=== PATIENT | female | born 1970 | race Two or more races ===

== ENCOUNTER 2024-06-28 21:47 | Emergency (ER) | payer SELFPAY ==
[~2024-06-28] VITALS: Ht 160 cm; Wt 72.1 kg
[2024-06-29] MEDS ORDERED: VENL150C3 PO (00:08)
[2024-06-29] MEDS ORDERED: METO25TA5 PO (00:08)
--- NOTE | 2024-06-29 00:08 | ED.PDOC ---
Psychiatric HPI Comments PT STATE SHE HAS BEEN OUT OF HER EFFEXOR FOR DEPRESSION SINCE SATURDAY, IS ALSO ALMOST OUT OF HER METOPROLOL. ASKING FOR MED REFILLS. RECENTLY LOST HER INSURANCE, NO LONGER HAS PCP Chief Complaint: Anxiety Time Seen by MD: 21:50 Reviewed Notes: Nurses Notes, Medications, Allergies Information Source: Patient Mode of Arrival: Ambulatory Past Medical History PAST MEDICAL HISTORY: Anxiety, Depression, HTN Surgical History: Denies all surgeries INTEGRATION AIDE History: No Pertinent INTEGRATION AIDE History Family History Family History: Unknown Social History Smoker: Other (VAPE) Alcohol: Denies ETOH Use Drugs: Denies Drug Use Constitutional: denies: chills, diaphoresis, fatigue, fever, malaise, sweats, weakness, others EENTM: denies: blurred vision, double vision, ear bleeding, ear discharge, ear drainage, ear pain, ear ringing, eye pain, eye redness, hearing loss, mouth pain, mouth swelling, nasal discharge, nose bleeding, nose congestion, nose pain, photophobia, tearing, throat pain, throat swelling, voice changes, others Respiratory: denies: cough, hemoptysis, orthopnea, SOB at rest, shortness of breath, SOB with excertion, stridor, wheezing, others Cardiovascular: denies: chest pain, dizzy spells, diaphoresis, Dyspnea on exert ion, edema, irregular heart beat, left arm pain, lightheadedness, palpitations, PND, syncope, others Gastrointestinal: denies: abdomen distended, abdominal pain, blood streaked bowels, constipated, diarrhea, dysphagia, difficulty swallowing, hematemesis, melena, nausea, poor appetite, poor fluid intake, rectal bleeding, rectal pain, vomiting, others Genitourinary: denies: abnormal vagina bleeding, burning, dyspareunia, dysuria, flank pain, frequency, hematuria, incontinence, pain, , vagina discharge, urgency, others Neurological: reports: dizziness, headache; denies: fainting, left sided numbness, left sided weakness, numbness, paresthesia, pre-existing deficit, right sided numbness, right sided weakness, seizure, speech problems, tingling, tremors, weakness, others Musculoskeletal: denies: back pain, gout, joint pain, joint swelling, muscle pain, muscle stiffness, neck pain, others Integumetry: denies: bruises, change in color, change in hair/nails, dryness, laceration, lesions, lumps, rash, wounds, others Allergic/Immunocompromised: denies: Difficulty Healing, Frequent Infections, Hives, Itching, others Hematologic/Lymphatic: denies: anemia, blood clots, easy bleeding, easy bruising, swollen glands, others Endocrine: denies: excessive hunger, excessive sweating, excessive thirst, excessive urination, flushing, intolerance to cold, intolerance to heat, unexplained weight gain, unexplained weight loss, others Psychiatric: denies: anxiety, bipolar disorder, depression, hopeless, panic disorder, schizophrenia, sleepless, suicidal, others Physical Exam General Appearance: No Apparent Distress, Normal HEENT: Normal ENT Inspection, Pharynx Normal, TMs Normal Neck: Full Range of Motion, Non-Tender Respiratory: Lungs Clear, No Respiratory Distress, Normal Breath Sounds Cardiovascular: No Edema, No JVD, No Murmur, No Gallop, Normal Peripheral Pulses, Regular Rate/Rhythm Breast Exam: Deferred Gastrointestinal: No Organomegaly, Non Tender, No Pulsatile Mass, Normal Bowel Sounds, Soft Genitalia: Deferred Pelvic: Deferred Rectal: Deferred Extremities: Normal capillary refill, Normal inspection, Normal range of motion, Non-tender, No pedal edema Musculoskeletal : Apperance: Normal Neurologic: Alert, testing tech II-XII nml as Tested, No Motor Deficits, Normal Affect, Normal Mood, No Sensory Deficits Cerebellar Function: Normal Reflexes: Normal Skin: Dry, Normal Color, Warm Lymphatic: No Adenopathy Was a procedure done? Was a procedure done?: No Psych Differential Dx Psych. Differential Dx: Anxiety OD Differential Dx: Depression X-Ray, Labs, Meds, VS Vital Signs Date Time Temp Pulse Resp B/P (MAP) Pulse Ox O2 Delivery O2 Flow Rate FiO2 06/28/24 22:05 98.8 103 18 136/93 (107) 99 98.8 Current Medications Medications (Trade) Dose Ordered Sig/Tanya Route Start Time Stop Time Status Last Admin Venlafaxine HCl (Effexor) 75 mg ONCE ONCE PO 06/29/24 00:15 06/29/24 00:16 DC 06/29/24 00:15 X-Ray, Labs, Meds, VS Comment PATIENT GIVEN A DOSE OF HER EFFEXOR 150 MG P.O.. MEDICATION SCRIPT TO PHARMACY EFFEXOR 150 MG ONCE DAILY AND METOPROLOL 25 MG TWICE DAILY. HAS PRESCRIPTION BOTTLES AT BEDSIDE. ADVISED TO TAKE MEDICATIONS PRESCRIBED. ADVISED PATIENT ON THE IMPORTANCE OF ESTABLISHING A PCP FOR FURTHER REFILLS. ER RETURN PRECAUTIONS GIVEN PATIENT INDICATES UNDERSTANDING AGREES WITH DISCHARGE PLAN OF CARE. Time of 1ST Reevaluation: 00:05 Reevaluation 1ST: Unchanged Time of 2ND Reevaluation: 00:26 Reevaluation 2ND: Improved Patient Education/Counseling: Diagnosis, Treatment, Prognosis, Need For Follow Up Family Education/Counseling: Diagnosis, Treatment, Prognosis, Need For Follow Up Departure 1 Departure Time of Disposition: 00:26 Impression: Primary Impression: Depression Qualified Codes: F32.A - Depression, unspecified Additional Impressions: Hypertension Qualified Codes: I10 - Essential (primary) hypertension Encounter for medication refill Disposition: HOME / SELF CARE / HOMELESS Condition: Stable e-Prescriptions Metoprolol Tartrate (Metoprolol Tartrate) 25 Mg Tab 1 TAB PO BID for 30 Days, #60 TAB Prov: BASILIA ANTUNEZ 06/29/24 Venlafaxine Hydrochloride (Effexor Xr) 150 Mg Cap 1 CAP PO DAILY for 30 Days, #30 CAP Prov: BASILIA ANTUNEZ 06/29/24 Discharged With: Significant Other Critical Care Note Critical Care Time?: No Stability Stability form required: No BASILIA ANTUNEZ Jun 29, 2024 00:08
[2024-06-29 00:15] VITALS: BP 147/99; PULSE 91; RESP 20; TEMP 98.8; O2SAT 98
[2024-06-29] MEDS: VENLAFAXINE HCL 37.5MG TABLET PO ONE (00:15)
== END 2024-06-29 00:32 | disposition home or self-care (01) ==
LOC: ER 21:47
DX: F32.A Depression, unspecified (principal); I10 Essential (primary) hypertension; F41.9 Anxiety disorder, unspecified; F17.290 Nicotine dependence, other tobacco product, uncomplicated; Z76.0 Encounter for issue of repeat prescription; Z79.899 Other long term (current) drug therapy